=== PATIENT | female | born 1980 | race Caucasian/White ===

== ENCOUNTER 2016-12-28 21:17 | Emergency (ER) | payer SELFPAY | END 2016-12-28 22:30 | disposition home or self-care (01) | LOC: ER 21:17 | DX: Z53.21 Procedure and treatment not carried out due to patient leaving prior to being seen by health care provider (principal) ==

== ENCOUNTER → 2017-01-26 | Outpatient (CLI) | payer MEDICAID | END | disposition home or self-care (01) | LOC: RAD.S 14:50 | DX: N94.10 Unspecified dyspareunia (principal) ==